=== PATIENT | female | born 1945 | race Caucasian/White ===

== ENCOUNTER 2016-11-28 19:52 | Emergency (ER) | payer OTHER, MEDICARE ==
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
[2016-11-28 20:35] LABS: CHLORIDE,CL 101 mmol/L (98-107); SODIUM,NA 140 mmol/L (136-145)
== END 2016-11-28 21:25 | disposition home or self-care (01) ==
LOC: LL.ED 19:52
DX: S40.012A Contusion of left shoulder, initial encounter (principal); I10 Essential (primary) hypertension; Z87.442 Personal history of urinary calculi; Z88.5 Allergy status to narcotic agent; V89.2XXA Person injured in unspecified motor-vehicle accident, traffic, initial encounter
CPT/HCPCS: 36415; 71020; 80053; 81001; 85025; 93005; 99282; 99285